=== PATIENT | female | born 1950 | race Caucasian/White ===

== ENCOUNTER 2021-06-27 17:32 | Emergency (ER) | payer OTHER ==
[2021-06-27 18:54] LABS: BILIRUBIN NEGATIVE (NEGATIVE); BLOOD 3+ Ery/uL (NEGATIVE); CLARITY CLEAR (CLEAR); COLOR YELLOW (YELLOW); GLUCOSE (U) TRACE mg/dL (NORMAL); LEUKOCYTES NEGATIVE Leu/uL (NEGATIVE); NITRITE NEGATIVE (NEGATIVE); PROTEIN 1+ mg/dL (NEGATIVE); pH 6.5 (5.0-9.0)
[2021-06-27 19:03] LABS: BACTERIA TRACE; URINARY RBC 20-50; URINARY WBC RARE
[2021-06-27 19:04] LABS: SQUAMOUS EPITHELIAL CELLS RARE
[2021-06-27 19:45] LABS: BASOPHIL 0.4 % (0-2); EOSINOPHIL 1.3 % (0-7); HGB 14.3 g/dl (12.5-16.0); MCH 30.6 pg (25.0-31.0); MCHC 32.5 g/dL (32.0-36.0); MCV 94.2 fL (78.0-100.0); MONOCYTE 7.5 % (0-12); MPV 9.5 fL (6.0-9.5); NEUTROPHIL 84.3 % (41-80); NRBC 0; PLT 262 K/uL (150-400); RBC 4.67 M/uL (4.20-5.40); RDW 13.3 % (11.5-14.0); WBC 12.1 K/uL (4.0-10.5)
[2021-06-27 19:59] LABS: BILIRUBIN - TOTAL 0.7 mg/dL (0.2-1.0); BUN/CREAT RATIO (CALC) 23.8 RATIO; CREATININE 0.8 mg/dL (0.51-0.95); GLOBULIN (CALCULATION) 4.5 g/dL; POTASSIUM 4.2 mmol/L (3.5-5.1); TOTAL PROTEIN 7.5 g/dL (6.4-8.2)
[2021-06-27 20:53] LABS: CORONAVIRUS 2019 SARS-COV-2 NEGATIVE (NEGATIVE); INFLUENZA A NAA NEGATIVE (NEGATIVE)
== END 2021-06-27 23:55 | disposition home or self-care (01) ==
LOC: FER 17:32
PROVIDERS: Emergency Medicine; Internal Medicine
DX: R79.89 Other specified abnormal findings of blood chemistry (principal); R31.9 Hematuria, unspecified; R05.9 Cough, unspecified; I10 Essential (primary) hypertension; F17.210 Nicotine dependence, cigarettes, uncomplicated; Z20.822 Contact with and (suspected) exposure to COVID-19
CPT/HCPCS: 36415; 71250; 80053; 81001; 83690; 84145; 85025; 86803; J7030; U0002

== ENCOUNTER → 2022-03-28 | Day surgery (SDC) | payer OTHER ==
[~2022-03-28] VITALS: Ht 158 cm; Wt 83.5 kg
[~2022-03-28] MED LIST: EZETIMIBE10 MG PO; LISINOPRIL20 MG PO; OMEGA 3 1,0001 EACH PO; OS-CAL500 MG PO; VITAMIN D21250 MCG PO
[2022-03-28 07:52] LABS: HCT 45.8 % (37.0-47.0); HGB 15.1 g/dl (12.5-16.0); MCH 31.3 pg (25.0-31.0); MCV 94.8 fL (78.0-100.0); MPV 9.4 fL (6.0-9.5); RBC 4.83 M/uL (4.20-5.40); RDW 14.2 % (11.5-14.0); WBC 8.2 K/uL (4.0-10.5)
[2022-03-28 08:21] LABS: ALBUMIN 3.6 g/dL (3.4-5.0); BILIRUBIN - TOTAL 0.7 mg/dL (0.2-1.0); BUN/CREAT RATIO (CALC) 18.8 RATIO; CREATININE 0.8 mg/dL (0.51-0.95); GLOBULIN (CALCULATION) 3.3 g/dL; TOTAL PROTEIN 6.9 g/dL (6.4-8.2)
== END | disposition home or self-care (01) ==
LOC: FAS 07:08
PROVIDERS: Surgery
DX: D12.0 Benign neoplasm of cecum (principal); D12.6 Benign neoplasm of colon, unspecified; K57.30 Diverticulosis of large intestine without perforation or abscess without bleeding; E78.5 Hyperlipidemia, unspecified; I10 Essential (primary) hypertension; J43.9 Emphysema, unspecified; F17.210 Nicotine dependence, cigarettes, uncomplicated; E78.00 Pure hypercholesterolemia, unspecified
CPT/HCPCS: 36415; 80053; J1610; J2704; J7120